=== PATIENT | female | born 1975 | race Caucasian/White ===

== ENCOUNTER → 2017-01-08 | Outpatient (CLI) | payer OTHER ==
--- NOTE | 2017-01-08 15:11 | KCIC ---
PROCEDURE Three-view study of both hands HISTORY Bilateral hand pain and swelling for 6 months. FINDINGS Left hand: There is a deformity of the distal left radius which appears to be due to an old healed fracture. No acute fracture or dislocation or osteolytic process is seen. No significant arthritic change is evident. No erosive arthropathy is evident. Right hand: No acute fracture or dislocation or osteolytic process is seen and. No significant arthritic change is evident. No erosive arthropathy is seen. IMPRESSION No significant arthritic change. No acute fracture. Electronically signed by: Cristino Huffman MD (Jan 08, 2017 15:09:57)
== END | disposition home or self-care (01) ==
LOC: KCIC 11:32
PROVIDERS: ATTEND Family Medicine
DX: M79.89 Other specified soft tissue disorders (principal); Z87.81 Personal history of (healed) traumatic fracture; M21.932 Unspecified acquired deformity of left forearm; M21.931 Unspecified acquired deformity of right forearm
CPT/HCPCS: 73130